=== PATIENT | male | born 1995 ===

== ENCOUNTER → 2018-12-13 | Outpatient (CLI) | payer OTHER ==
--- NOTE | 2018-12-13 17:16 | KCIC ---
MR of the left knee HISTORY: Left knee pain. Injury to the medial knee this month. TECHNIQUE: Routine multiplanar sequences are obtained. FINDINGS: No evidence of medial meniscal tear. Signal within the substance of the lateral meniscus, centered at the body and anterior horn communicating with a para meniscal cyst via the nonarticular peripheral surface. Anterior and posterior cruciate ligaments are intact. Medial collateral ligament is intact. Iliotibial band unremarkable. Fibular collateral ligament, biceps femoris tendon and popliteus tendon are intact. Extensor mechanism is intact. Small joint effusion. No significant Rosas's cyst. Small subchondral fracture at the anterior weightbearing lateral femoral condyle without displacement or gross depression. Reciprocating subchondral marrow contusion at the anterior lateral tibial plateau, possibly also with a small incomplete nondisplaced fracture. Subchondral marrow contusions at the anterior medial femoral condyle and reciprocating anterior medial tibial plateau, with possible tiny nondisplaced fractures. No acute articular cartilage defect. No significant Rosas's cyst. Mild increased T2 signal identified within the medial gastrocnemius muscle, likely a strain or contusion. IMPRESSION: 1. Lateral meniscal tear violating the peripheral nonarticular surface and communicating with a para meniscal cyst. Note there is no evidence of tear extending through the superior or inferior articular surface. 2. Anterior compartment medial and lateral subchondral marrow contusions compatible hyperextension injury. Nondisplaced subchondral fracture of the anterior weightbearing lateral femoral condyle, and possibly within the other marrow contusions as well. Electronically signed by: Vahe Nick MD (12/13/2018 5:13 PM) [id number]
== END | disposition home or self-care (01) ==
LOC: KCIC MRI 16:04
PROVIDERS: ATTEND Orthopaedic Surgery
DX: S72.425A Nondisplaced fracture of lateral condyle of left femur, initial encounter for closed fracture (principal); S83.282A Other tear of lateral meniscus, current injury, left knee, initial encounter; S83.242A Other tear of medial meniscus, current injury, left knee, initial encounter; X58.XXXA Exposure to other specified factors, initial encounter; Y93.89 Activity, other specified; Y92.89 Other specified places as the place of occurrence of the external cause; Y99.8 Other external cause status
CPT/HCPCS: 73721